=== PATIENT | male | born 1965 | race African-American/Black ===

== ENCOUNTER → 2017-04-04 | Outpatient (CLI) | payer OTHER ==
--- NOTE | ~2017-04-04 | CR169 ---
[facility] A Service of [facility] & [facility] RADIOLOGY TEXT RESULTS PATIENT: ANDREA BELLO LOCATION: [facility] : 63 UNIT #: [id number] AGE: [address]: KHLOE ESCOBEDO SEX: M ORDER DR: [id number] [facility] [address]. [place], [place] [address] [id number] O MR#: [id number] Acc #: [id number] NAME: ANDREA BELLO : 1965 SEX: M STUDY DATE/TIME: 04/04/2017 17:18 UNIT: [facility] ROOM: STUDY DESCRIPTION: CR Knee 2 Views Lt Attending Physician: Khloe Escobedo Aprn Referring Physician: Khloe Escobedo Aprn Ordering Physician: Khloe Escobedo Aprn Primary Care Physician: Khloe Escobedo Aprn MEDICAL IMAGING REPORT This report is preliminary unless electronic signature is present EXAM Left knee, 2 views, 04/04/2017. HISTORY Left knee pain for 2 weeks. No known injury, left knee soreness. FINDINGS Two views of the left knee demonstrate no fracture. There is mild narrowing of the medial compartment of the knee and small osteophytes border the medial compartment. The bones are normally mineralized. There is no joint effusion. IMPRESSION Degenerative change involving the medial compartment of the left knee. No acute abnormality. Dictated by... Daniel Bernal M.D. THIS IS AN ELECTRONICALLY VERIFIED REPORT Daniel Bernal M.D. at 04/05/2017 2:16 PM LOCO/raheem TD: 04/05/2017 03:26 JOB #: [id number] MEDICAL IMAGING REPORT Page 1 of 1 COPY
--- NOTE | ~2017-04-04 | CR170 ---
[facility] A Service of [facility] & [facility] RADIOLOGY TEXT RESULTS PATIENT: ANDREA BELLO LOCATION: [facility] : 63 UNIT #: [id number] AGE: [address]: KHLOE ESCOBEDO SEX: M ORDER DR: [id number] [facility] [address] [place], [place] [address] [id number] O MR#: [id number] #: [id number] NAME: ANDREA BELLO : 1965 SEX: M STUDY DATE/TIME: 04/04/2017 17:17 UNIT: [facility] ROOM: STUDY DESCRIPTION: CR Knee 2 Views Rt Attending Physician: Khloe Escobedo Aprn Referring Physician: Khloe Escobedo Aprn Ordering Physician: Khloe Escobedo Aprn Primary Care Physician: Khloe Escobedo Aprn MEDICAL IMAGING REPORT This report is preliminary unless electronic signature is present EXAM Right knee, 2 views, 04/04/2017. HISTORY Right knee pain and soreness for 2 weeks with no known injury. FINDINGS Two views of the right knee demonstrate no fracture. There is degenerative narrowing of the medial compartment of the knee. Small osteophytes extend off the medial compartment. The bones are normally mineralized. There is no joint effusion. IMPRESSION Mild degenerative change involving the medial compartment of the knee. No acute abnormality. Dictated by... Daniel Bernal M.D. THIS IS AN ELECTRONICALLY VERIFIED REPORT Daniel Bernal M.D. at 04/05/2017 2:16 PM LOCO/raheem TD: 04/05/2017 03:25 JOB #: [id number] MEDICAL IMAGING REPORT Page 1 of 1 COPY
== END | disposition home or self-care (01) ==
LOC: CRAD 16:54
DX: M25.561 Pain in right knee (principal); M25.562 Pain in left knee; S89.92XA Unspecified injury of left lower leg, initial encounter
CPT/HCPCS: 73560